=== PATIENT | male | born 1975 | race Caucasian/White ===

== ENCOUNTER 2017-04-17 19:02 | Emergency (ER) | payer OTHER ==
[~2017-04-17] VITALS: Ht 203.2 cm; Wt 120.2 kg
--- NOTE | 2017-04-17 19:06 | NUR ---
[id number], bibra from PACU c/o difficulty breathing, sorethroat, feeling something was stuck in his throat, episodes of violent coughing s/p left shoulder arthroscopy. Resp is even and unlabored with nad noted. Skin is warm and dry. Placed on monitor. Will continuously monitor the patient. Dr Freedman at for eval.
--- NOTE | 2017-04-17 19:16 | NUR ---
Report given to CARIN Blevins for [facility].
[2017-04-17] MEDS ORDERED: LIDOCAINE VISCOUS 2% UD 15 ML UDC MM ONE (19:30)
[2017-04-17] MEDS ORDERED: LIDOCAINE VISCOUS 2% UD 15 ML UDC ONE (19:31)
--- NOTE | 2017-04-17 19:34 | NUR ---
pt states he wants to wait 10 min before they draw blood
--- NOTE | 2017-04-17 20:10 | NUR ---
VITAL SIGNS UPDATED.
[2017-04-17 20:39] LABS: BASOPHILS # (AUTO) 0.1 /CMM (0.0-0.2); BASOPHILS % (AUTO) 0.5 % (0.0-2.0); EOSINOPHILS % (AUTO) 0.1 % (0.0-6.0); HEMATOCRIT 50 % (39-51); HEMOGLOBIN 17.1 g/dL (13.5-17.5); LYMPHOCYTES # (AUTO) 0.5 /CMM (0.8-4.8); MEAN CORPUSCULAR HEMOGLOBIN 31 PG (26.0-33.0); MEAN CORPUSCULAR HGB CONC 34 g/dl (31.0-36.0); MEAN CORPUSCULAR VOLUME 89 fL (80-96); MONOCYTES % (AUTO) 0.4 % (2.0-12.0); NEUTROPHILS # (AUTO) 9.4 /CMM (1.8-8.9); PLATELET COUNT (AUTO) 238 /CMM (150-450); RDW COEFFICIENT OF VARIATION 13.1 (11.5-15.0); RED BLOOD CELL COUNT(AUTO) 5.61 MIL/uL (4.5-6.0)
[2017-04-17 20:49] LABS: CREATININE 1.4 mg/dL (0.6-1.3); POTASSIUM 4.2 mmol/L (3.5-5.1)
[2017-04-17 20:55] LABS: ALBUMIN 4.1 g/dL (3.4-5.0); BILIRUBIN,DIRECT 0.2 mg/dL (0.0-0.2); BILIRUBIN,TOTAL 0.9 mg/dL (0.2-1.0); TOTAL PROTEIN, SERUM 8.1 g/dL (6.4-8.2)
[2017-04-17] MEDS ORDERED: IV NS 0.9% 1,000 ML BAG IV ONE (21:00)
[2017-04-17] MEDS ORDERED: ONDANSETRON HCL/PF 4 MG/2 ML VIAL IV ONE (21:00)
[2017-04-17] MEDS ORDERED: ONDANSETRON HCL/PF 4 MG/2 ML VIAL ONE (21:20)
--- NOTE | 2017-04-17 21:40 | NUR ---
patient states he feels better, and wants to go home. MD notified
--- NOTE | 2017-04-17 21:50 | NUR ---
applied ice pack to left shoulder sx site
[2017-04-17 21:54] VITALS: BP 129/86
--- NOTE | 2017-04-17 21:55 | NUR ---
Patient discharged to home in stable condition. Written and verbal after care instructions given. Patient verbalizes understanding of instruction.IV removed. Catheter intact and site benign. Pressure and 4x4 applied to site. No bleeding noted. pt ambulatory with a steady gait VITAL SIGNS WITHIN NORMAL LIMITS.
== END 2017-04-17 21:54 | disposition home or self-care (01) ==
LOC: ER 19:04
DX: T88.59XA Other complications of anesthesia, initial encounter (principal); T41.45XA Adverse effect of unspecified anesthetic, initial encounter; J04.0 Acute laryngitis; I10 Essential (primary) hypertension; K21.9 Gastro-esophageal reflux disease without esophagitis; G43.909 Migraine, unspecified, not intractable, without status migrainosus; Z88.0 Allergy status to penicillin; Y84.9 Medical procedure, unspecified as the cause of abnormal reaction of the patient, or of later complication, without mention of misadventure at the time of the procedure; Y92.89 Other specified places as the place of occurrence of the external cause
CPT/HCPCS: 36415; 71010; 80048; 80076; 85025; 93005; 96361; 96374; 99285; A4606; J2405; J7030; Z7610